=== PATIENT | male | born 1945 | race African-American/Black ===

== ENCOUNTER 2018-05-24 09:49 | Emergency (ER) | payer MEDICARE ==
[2018-05-24 10:48] LABS: ALT (SGPT) 15 U/L (8-55); AST (SGOT) 23 U/L (5-34); Albumin 4.2 g/dL (3.4-4.8); Alkaline Phosphatase 93 U/L (40-150); Anion Gap 17 mmol/L (10-20); BUN (Urea Nitrogen) 14 mg/dL (8.4-25.7); Bilirubin, Total 0.4 mg/dL (0.2-1.2); CK (CPK) 44 U/L (30-200); Calc. Creatinine Clearance 0 mL/min (70-130); Carbon Dioxide 23 mmol/L (23-31); Chloride 106 mmol/L (98-107); Estimated GFR-MDRD Greater than 90; Globulin 4.6 g/dL (2.4-3.5); Glucose 92 mg/dL (83-110); Potassium 3.8 mmol/L (3.5-5.1); Protein, Total 8.8 g/dL (5.8-8.1); Sodium 142 mmol/L (136-145)
[2018-05-24 10:53] LABS: #Eosinphils 0.1 thou/uL (0.0-0.7); #Monocytes 0.3 thou/uL (0.11-0.59); #Neutrophils 2.8 thou/uL (1.40-6.50); %Basophils 0.5 % (0.0-1.0); %Eosinophils 1.5 % (0.0-10.0); %Lymphocytes 23.4 % (21.0-51.0); %Monocytes 8.2 % (0.0-10.0); %Neutrophils 66.4 % (42.0-75.0); Hemoglobin 10.1 g/dL (14.0-18.0); Mean Corpuscular HGB CONC 29.7 g/dL (32.0-36.0); Mean Corpuscular Hemoglobin 25.2 pg (27.0-31.0); Mean Corpuscular Volume 84.9 fL (78.0-98.0); Mean Platelet Volume 10.4 fL (7.4-10.4); Platelet Count 230 thou/uL (130-400); RBC Distribution Width 16.5 % (11.5-14.5); Red Blood Cell (RBC) Count 4.01 mill/uL (4.70-6.10); White Blood Cell (WBC) Count 4.2 thou/uL (4.8-10.8)
[2018-05-24] MEDS ORDERED: Adacel (T-DAP) 0.5 ML VIAL ONE (10:54)
[2018-05-24] MEDS ORDERED: Piperacillin/Tazobactam 3.375 GM VIAL ONE (10:54)
[2018-05-24] MEDS ORDERED: Ondansetron HCl/PF 4 MG/2 ML Vial ONE ×2 (10:54→11:10)
--- NOTE | 2018-05-24 11:33 | RAD ---
3 VIEW LEFT FOOT: Date: 05/24/18 INDICATION: Fourth toe infection. FINDINGS: No fracture or dislocation identified. Small calcaneal enthesophytes are present and there is mild os teophytosis. Soft tissue prominence of the forefoot is present. Extrinsic artifact is present, limiti ng visualization. 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 IMPRESSION: No definite acute osseous abnormality. If there is concern for osteomyelitis, consider follow-up with dedicated 3 phase bone scan or MRI as necessary. POS: [facility]
== END 2018-05-24 11:33 | disposition short-term general hospital (02) ==
LOC: NAV ERS 09:49
DX: I96 Gangrene, not elsewhere classified (principal); I11.0 Hypertensive heart disease with heart failure; I50.9 Heart failure, unspecified; E78.5 Hyperlipidemia, unspecified; F17.210 Nicotine dependence, cigarettes, uncomplicated; Z79.899 Other long term (current) drug therapy; Z79.82 Long term (current) use of aspirin
CPT/HCPCS: 80053; 82550; 83605; 85025; 87040; 90471; 90715; 96374; 96375; J2270; J2405; J2543